=== PATIENT | female | born 1955 | race Caucasian/White ===

== ENCOUNTER 2016-09-15 11:52 | Emergency (ER) | payer OTHER ==
[~2016-09-15] VITALS: Ht 167.6 cm; Wt 102.0 kg
[~2016-09-15 11:52] MED LIST: ASPI325T10 PO; B12-1CHW SL; BUTACAP2 PO; CALC600T10 PO; CHOL50006 PO; CLON0.2T PO; DIPH25; ESTR42.5V PV; HYDR-3534 PO; NORV10TA PO; OMPR20CCR PO; POTA-243 PO; RANI1TAB7; TAB-TAB PO; TRAM50TA PO
[2016-09-15 11:56] VITALS: BP 139/60; PULSE 86; RESP 17; TEMP 98; O2SAT 97
[2016-09-15] MEDS ORDERED: SODIUM CHLORIDE 0.9% FLUSH 10 ML FLUSH IV FLUSH PRN (12:45)
--- NOTE | 2016-09-15 12:47 | PD ---
HPI Chief Complaint: Abdominal Pain Time Seen by Provider: 12:19 Travel History International Travel<30 days: No Contact w/Intl Traveler<30days: No Traveled to known affect area: No History of Present Illness HPI The patient was seen and examined in the presence of the nurse. She complains of abdominal pain. Location is epigastric and left upper quadrant. Severity is moderate. It seems to have eased off quite a bit. She did have nausea and vomited one time. She is also had some diarrhea. No alleviating factors. Duration 3 days. PFSH Past Medical History Blood Disorders: No Anxiety: Yes Depression: Yes Cancer: No Cardiovascular Problems: Yes (HTN) High Cholesterol: Yes Chest Pain: Yes Congestive Heart Failure: Yes Diabetes: Yes Patient Takes Glucophage: No Diminished Hearing: No Endocrine: Yes Fibromyalgia: Yes Gastrointestinal Disorders: Yes (MASS IN RIGHT SIDE GOING FOR CT THIS MONTH) GERD: Yes Genitourinary: Yes (FIBROIDS) Headaches: Yes Hepatitis: No Hiatal Hernia: Yes Hypertension: Yes Immune Disorder: No Inguinal Hernia: Yes Medical other: Yes (ABD HERNIAS) Musculoskeletal: No Neurologic: No Psychiatric: Yes Reproductive: No Respiratory: No Immunizations Current: No Thyroid Disease: No Tetanus Vaccination: > 5 Years Influenza Vaccination: No ?: Not Menopausal: Yes Tubal Ligation: Yes Past Surgical History Abdominal Surgery: Yes (GASTRIC BIPASS in 2008, CHOLECYSTECTOMY, HERNIA REPAIR , TUM) AICD: No Arteriovenous Shunt: No Body Medical Devices: ABD MESH Cardiac Surgery: No Section: Yes (x 1) Cholecystectomy: Yes (in 1993) Ear Surgery: No Endocrine Surgery: No Eye Surgery: No Gynecologic Surgery: Yes (C SECTION, TUBAL LIGATION) Insulin Pump: No Joint Replacement: No Pacemaker: No Thoracic Surgery: No Other Surgery: Yes (HERNIA REPAIR X 3, TUMMY TUCK 2009) Social History Alcohol Use: No Tobacco Use: No Substance Use: No Allergies-Medications (Allergen,Severity, Reaction): Coded Allergies: Fentanyl (Verified Allergy, Severe, Anaphylaxis, 09/15/16) Codeine (Verified Allergy, Mild, Nausea/Vomiting, 09/15/16) DENIES ALLERGY, "I ONLY GET NAUSEATED, I CAN TAKE A FEW DOSES." Glucophage (Verified Allergy, Mild, SHORT OF BREATH, 09/15/16) Reported Meds & Prescriptions Reported Meds & Active Scripts Active Reported Vitamin D3 (Cholecalciferol) 50,000 Unit Tab 50,000 Units PO Q7D Prilosec (Omeprazole) 20 Mg Cap 20 Mg PO DAILY Hydrochlorothiazide 25 Mg Tab 25 Mg PO DAILY Metoprolol Tartrate 25 Mg Tab 25 Mg PO DAILY Tramadol (Tramadol HCl) 50 Mg Tab 50 Mg PO Q6H PRN Zantac (Ranitidine HCl) 150 Mg Tab 150 Mg PO DAILY Multiple Vitamin 1 Tab 1 Tab PO DAILY Clonidine (Clonidine HCl) 0.2 Mg Tab 0.2 Mg PO TID Benadryl Allergy (Diphenhydramine HCl) 25 Mg Tab 25 Mg PO DAILY Vitamin B-12 (Cyanocobalamin) 1,000 Mcg Tab 1,000 Mcg PO DAILY Aspirin 325 Mg Tab 325 Mg PO DAILY Calcium 600 with Vitamin D (Calcium Carbonate-Cholecalciferol) 600-400 mg-Unit Tab 1 Tab PO DAILY Fiorinal (Butalbital/Aspirin/Caffeine) 50-325-40 Mg Cap 1 Cap PO Q6HR PRN Do not exceed 6 capsules/day. Review of Systems General / Constitutional: No: Fever Eyes: No: Visual changes HENT: No: Headaches Cardiovascular: No: Chest Pain or Discomfort Respiratory: No: Shortness of Breath Gastrointestinal: Positive: Nausea, Vomiting, Diarrhea, Abdominal Pain Genitourinary: No: Dysuria Musculoskeletal: No: Pain Skin: No Rash Neurologic: No: Weakness Psychiatric: No: Depression Endocrine: No: Polydipsia Hematologic/Lymphatic: No: Easy Bruising Physical Exam Narrative GENERAL: Well-nourished, well-developed patient in no apparent distress. SKIN: Focused skin assessment reveals no rash and nodules. Skin is Warm and dry. HEAD: Atraumatic. Normocephalic. EYES: Pupils equal and round. No scleral icterus. No injection or drainage. ENT: No nasal bleeding or discharge. Mucous membranes pink and moist. NECK: Trachea midline. No JVD. CARDIOVASCULAR: Regular rate and rhythm. No murmur appreciated. RESPIRATORY: No accessory muscle use. Clear to auscultation. Breath sounds equal bilaterally. GASTROINTESTINAL: Abdomen soft, obese, minimal epigastric and left upper quadrant tenderness without rebound or guarding, nondistended. Hepatic and splenic margins not palpable. MUSCULOSKELETAL: No obvious deformities. No clubbing. No cyanosis. No edema. NEUROLOGICAL: Awake and alert. No obvious cranial nerve deficits. Motor grossly within normal limits. Normal speech. PSYCHIATRIC: Appropriate mood and affect; insight and judgment normal. Data Data Last Documented VS Vital Signs Date Time Temp Pulse Resp B/P Pulse Ox O2 Delivery O2 Flow Rate FiO2 09/15/16 15:00 88 15 123/68 97 09/15/16 14:00 Room Air 09/15/16 11:56 98.0 Orders Complete Blood Count With Diff (09/15/16 12:36) Comprehensive Metabolic Panel (09/15/16 12:36) Lipase (09/15/16 12:36) Prothrombin Time / Inr (Pt) (09/15/16 12:36) Act Partial Throm Time (Ptt) (09/15/16 12:36) Ct Abd/Pel W Iv Contrast(Rout) (09/15/16 12:36) Iv Access Insert/Monitor (09/15/16 12:36) Ecg Monitoring (09/15/16 12:36) Oximetry (09/15/16 12:36) Sodium Chloride 0.9% Flush (Ns Flush) (09/15/16 12:45) Gamma Gt (Ggt) (09/15/16 12:36) Iohexol 350 Inj (Omnipaque 350 Inj) (09/15/16 14:17) Sodium Chlor 0.9% 1000 Ml Inj (Ns 1000 M (09/15/16 15:15) Oxycodone-Acetamin 5-325 Mg (Percocet (09/15/16 15:15) Labs Laboratory Tests Test 09/15/16 12:15 White Blood Count 13.2 TH/MM3 Red Blood Count 4.48 MIL/MM3 Hemoglobin 13.0 GM/DL Hematocrit 40.0 % Mean Corpuscular Volume 89.3 FL Mean Corpuscular Hemoglobin 28.9 PG Mean Corpuscular Hemoglobin 32.4 % Concent Red Cell Distribution Width 13.8 % Platelet Count 287 TH/MM3 Mean Platelet Volume 9.8 FL Neutrophils (%) (Auto) 75.4 % Lymphocytes (%) (Auto) 17.2 % Monocytes (%) (Auto) 6.7 % Eosinophils (%) (Auto) 0.1 % Basophils (%) (Auto) 0.6 % Neutrophils # (Auto) 10.0 TH/MM3 Lymphocytes # (Auto) 2.3 TH/MM3 Monocytes # (Auto) 0.9 TH/MM3 Eosinophils # (Auto) 0.0 TH/MM3 Basophils # (Auto) 0.1 TH/MM3 CBC Comment DIFF FINAL Differential Comment Prothrombin Time 11.1 SEC Prothromb Time International 1.0 RATIO Ratio Activated Partial 27.2 SEC Thromboplast Time Sodium Level 136 MEQ/L Potassium Level 3.4 MEQ/L Chloride Level 100 MEQ/L Carbon Dioxide Level 24.8 MEQ/L Anion Gap 11 MEQ/L Blood Urea Nitrogen 19 MG/DL Creatinine 1.16 MG/DL Estimat Glomerular Filtration 47 ML/MIN Rate Random Glucose 229 MG/DL Calcium Level 8.4 MG/DL Total Bilirubin 0.4 MG/DL Gamma Glutamyl Transpeptidase 59 U/L Aspartate Amino Transf 20 U/L (AST/SGOT) Alanine Aminotransferase 22 U/L (ALT/SGPT) Alkaline Phosphatase 108 U/L Total Protein 7.5 GM/DL Albumin 3.2 GM/DL Lipase 71 U/L [facility] Medical Decision Making Medical Screen Exam Complete: Yes Emergency Medical Condition: Yes Medical Record Reviewed: Yes Differential Diagnosis Pancreatitis, irritable bowel syndrome, biliary stricture Narrative Course I have reviewed the patient's electronic medical record. Patient 2014 had multiple visits for biliary stricture and required stent placement IV placed CBC shows leukocytosis of 13,000, nonspecific Metabolic profile reasonably normal LFTs reasonably normal Lipase is normal GGT is 59 I gave her 1 L normal saline IV CT abdomen and pelvis shows nothing acute Workup is essentially negative for acute obstructive problem Stable for outpatient follow-up with GI physician and primary care I wrote her a dozen pain pills and a dozen nausea pills for symptom relief Diagnosis Primary Impression: Abdominal pain Qualified Code: R10.13 - Epigastric pain Additional Instructions: The patient was advised to follow up with their physician and return if they worsen. The patient was warned about potential sedation for the medications they will receive on prescription. Med/Other Pt SpecificInfo: Prescription(s) given Scripts Ondansetron (Zofran)4 Mg Tab4 Mg PO Q6HR PRN (NAUSEA OR VOMITING) #12 TAB Ref 0 Prov:Omari Maddox MD 09/15/16 Oxycodone-Acetaminophen (Percocet)5-325 mg Tab1 Tab PO Q6H PRN (PAIN) #12 TAB Ref 0 Prov:Omari Maddox MD 09/15/16 Disposition: 01 DISCHARGE HOME Condition: Stable Omari Maddox MD Sep 15, 2016 12:47
[2016-09-15] MEDS ORDERED: CALC1TAB87 PO (12:49)
[2016-09-15] MEDS ORDERED: CHOL1TAB16 PO (12:49)
[2016-09-15] MEDS ORDERED: VITA10002 PO (12:49)
[2016-09-15] MEDS ORDERED: METO25TA3 PO (12:49)
[2016-09-15] MEDS ORDERED: MULTTAB67 PO (12:49)
[2016-09-15] MEDS ORDERED: BENA25TA3 PO (12:49)
[2016-09-15] MEDS ORDERED: ASPI325T PO (12:49)
[2016-09-15] MEDS ORDERED: TRAM50TA PO (12:49)
[2016-09-15] MEDS ORDERED: HYDR25TA5 PO (12:49)
[2016-09-15] MEDS ORDERED: FIORINAL2 PO (12:49)
[2016-09-15] MEDS ORDERED: ZANT150T2 PO (12:49)
[2016-09-15] MEDS ORDERED: CLON0.2T PO (12:49)
[2016-09-15] MEDS ORDERED: PRIL20CA9 PO (12:49)
[2016-09-15 12:58] LABS: BASOPHIL # 0.1 TH/MM3 (0-0.2); BASOPHIL % 0.6 % (0.0-2.0); EOSINOPHIL % 0.1 % (0.0-4.0); HEMO FLAGS DIFF FINAL; LYMPH % 17.2 % (9.0-44.0); LYMPHOCYTE # 2.3 TH/MM3 (1.0-4.8); MEAN CELL VOLUME 89.3 FL (80.0-100.0); MEAN CORPUSCULAR HEMOGLOBIN 28.9 PG (27.0-34.0); MEAN CORPUSCULAR HGB CONC 32.4 % (32.0-36.0); MONO % 6.7 % (0.0-8.0); NEUT % 75.4 % (16.0-70.0); PLATELET COUNT 287 TH/MM3 (150-450); RED BLOOD COUNT 4.48 MIL/MM3 (4.00-5.30); RED CELL DISTRIBUTION WIDTH 13.8 % (11.6-17.2); WHITE BLOOD COUNT 13.2 TH/MM3 (4.0-11.0)
[2016-09-15 13:00] VITALS: PULSE 85; RESP 16; O2SAT 98
[2016-09-15 13:06] LABS: APTT (PATIENT) 27.2 SEC (24.3-30.1); PROTHROMBIN TIME - PATIENT 11.1 SEC (9.8-11.6)
[2016-09-15 13:35] LABS: ALT (GPT) 22 U/L (10-53); ANION GAP 11 MEQ/L (5-15); AST (GOT) 20 U/L (15-37); BICARBONATE 24.8 MEQ/L (21.0-32.0); BLOOD UREA NITROGEN 19 MG/DL (7-18); CHLORIDE 100 MEQ/L (98-107); GAMMA GT 59 U/L (5-55); GLOMERULAR FILTRATION RATE 47 ML/MIN (>89); POTASSIUM 3.4 MEQ/L (3.5-5.1); SODIUM (NA) 136 MEQ/L (136-145)
[2016-09-15 13:37] LABS: ALKALINE PHOSPHATASE 108 U/L (45-117); TOTAL BILIRUBIN ADULT 0.4 MG/DL (0.2-1.0)
[2016-09-15 14:00] VITALS: PULSE 85; RESP 16; O2SAT 98
[2016-09-15] MEDS ORDERED: IOHEXOL 350 MG/ML 10 ML VIAL (for RAD DIAG) IV ONE (14:17)
--- NOTE | 2016-09-15 14:31 | RADRPT ---
EXAM DATE/TIME: 09/15/2016 13:56 [facility] COMPARISON: CT ABDOMEN W/O CONTRAST, July 27, 2013, 14:22. INDICATIONS : Left upper abdomen pain today. IV CONTRAST: 90 cc Omnipaque 350 (iohexol) IV ORAL CONTRAST: No oral contrast ingested. RADIATION DOSE: 16.27 CTDIvol (mGy) MEDICAL HISTORY : Congestive heart failure. Hernia, hiatal. SURGICAL HISTORY : Gastric bypass. hernia repair ENCOUNTER: Initial ACUITY: 1 day PAIN SCALE: 5/10 LOCATION: Left upper quadrant TECHNIQUE: Volumetric scanning of the abdomen and pelvis was performed. Using automated exposure control and ad justment of the mA and/or kV according to patient size, radiation dose was kept as low as reasonably achievable to obtain optimal diagnostic quality images. FINDINGS: CT Abdomen: The spleen, pancreas, kidneys, adrenals are unremarkable. There is no evidence for any ap preciable pathological adenopathy, free fluid, or bowel obstruction. The liver is fatty without focal lesions or technique. There is evidence for prior cholecystectomy and common bile that measures 7-[address] pelvis: There is no evidence for mass, abscess formation, or any significant adenopathy within the pelvis. There are scattered diverticuli mainly in the sigmoid colon without definite signs of divert iculitis. The appendix appears intact without definite signs of appendicitis. CONCLUSION: Fatty liver and the scattered colonic diverticuli KGil Kirkpatrick MD on September 15, 2016 at 14:25 Board Certified Radiologist. This report was verified electronically.
[2016-09-15 15:00] VITALS: BP 123/68; PULSE 88; RESP 15; O2SAT 97
[2016-09-15] MEDS ORDERED: PERC5TAB12 PO (15:14)
[2016-09-15] MEDS ORDERED: ZOFR4TAB PO (15:14)
[2016-09-15] MEDS ORDERED: oxyCODONE/ACETAMINOPHEN 5 MG/325 MG TAB PO ONE (15:15)
[2016-09-15] MEDS ORDERED: SODIUM CHLOR 0.9% 1000 ML INJ 1,000 ML IV ONE (15:15)
== END 2016-09-15 16:40 | disposition home or self-care (01) ==
LOC: NEPC 11:52
DX: R10.13 Epigastric pain (principal); R19.7 Diarrhea, unspecified; R11.2 Nausea with vomiting, unspecified; I10 Essential (primary) hypertension; E78.00 Pure hypercholesterolemia, unspecified; I50.9 Heart failure, unspecified; E11.9 Type 2 diabetes mellitus without complications; M79.7 Fibromyalgia; K21.9 Gastro-esophageal reflux disease without esophagitis
CPT/HCPCS: 74177; 80053; 82977; 83690; 85025; 85610; 85730; 96360; 99284; J7030; Q9967

== ENCOUNTER 2017-01-09 21:33 | Observation (INO) | payer OTHER ==
[~2017-01-09 21:33] MED LIST changes: +ASPI325T PO; -ASPI325T10 PO; -B12-1CHW SL; +BENA25TA3 PO; -BUTACAP2 PO; +CALC1TAB87 PO; -CALC600T10 PO; +CHOL1TAB16 PO; -CHOL50006 PO; -DIPH25; -ESTR42.5V PV; +FIORINAL2 PO; -HYDR-3534 PO; +HYDR25TA5 PO; +METO25TA3 PO; +MULTTAB67 PO; -NORV10TA PO; -OMPR20CCR PO; +PERC5TAB12 PO; -POTA-243 PO; +PRIL20CA9 PO; -RANI1TAB7; -TAB-TAB PO; +VITA10002 PO; +ZANT150T2 PO; +ZOFR4TAB PO
[2017-01-09 21:37] VITALS: BP 186/81; PULSE 89; RESP 16; TEMP 99.4; O2SAT 99
[2017-01-09 22:05] VITALS: BP 192/99; PULSE 92; RESP 18; TEMP 99.4; O2SAT 99
[2017-01-09 22:07] VITALS: O2SAT 98
--- NOTE | 2017-01-09 22:08 | PD ---
HPI Chief Complaint: Fever Time Seen by Provider: 21:50 Travel History International Travel<30 days: No Contact w/Intl Traveler<30days: No Traveled to known affect area: No History of Present Illness HPI 61-year-old female here for evaluation of fever, chills, palpitations, left arm pain, generalized malaise, headache. Patient reports that the symptoms started earlier today. She took Tylenol and tramadol at home without relief of symptoms. She reports that she break only has headaches, however her headache today is not improving with tramadol. She reports temperature of 99.9F at home. She denies cough. No abdominal pain. No urinary symptoms. No rash. No known history of CAD. No history of DVT or PE. No hemoptysis. PFSH Past Medical History Blood Disorders: No Anxiety: Yes Depression: Yes Cancer: No Cardiovascular Problems: Yes High Cholesterol: Yes Chest Pain: Yes Congestive Heart Failure: Yes Diabetes: Yes Patient Takes Glucophage: No Diminished Hearing: No Endocrine: Yes Fibromyalgia: Yes Gastrointestinal Disorders: Yes (MASS IN RIGHT SIDE.DIVERTICULOSIS,OBSTRUCTIVE JAUNDICE) GERD: Yes Genitourinary: Yes (FIBROIDS) Headaches: Yes Hepatitis: No Hiatal Hernia: Yes Hypertension: Yes Immune Disorder: No Inguinal Hernia: Yes Medical other: Yes (ABD HERNIAS) Musculoskeletal: No Neurologic: No Psychiatric: Yes Reproductive: No Respiratory: No Immunizations Current: No Thyroid Disease: No Menopausal: Yes Tubal Ligation: Yes Past Surgical History Abdominal Surgery: Yes (GASTRIC BIPASS in 2008, HERNIA REPAIR, ) AICD: No Arteriovenous Shunt: No Body Medical Devices: ABD MESH Cardiac Surgery: No Section: Yes (x 1) Cholecystectomy: Yes (in 1993) Ear Surgery: No Endocrine Surgery: No Eye Surgery: No Gynecologic Surgery: Yes (C SECTION, TUBAL LIGATION) Insulin Pump: No Joint Replacement: No Pacemaker: No Thoracic Surgery: No Other Surgery: Yes (HERNIA REPAIR X 3, 2009) Social History Alcohol Use: No Tobacco Use: No Substance Use: No Allergies-Medications (Allergen,Severity, Reaction): Coded Allergies: Fentanyl (Verified Allergy, Severe, Anaphylaxis, 01/09/17) Codeine (Verified Allergy, Mild, Nausea/Vomiting, 01/09/17) DENIES ALLERGY, "I ONLY GET NAUSEATED, I CAN TAKE A FEW DOSES." Glucophage (Verified Allergy, Mild, SHORT OF BREATH, 01/09/17) Reported Meds & Prescriptions Reported Meds & Active Scripts Active Reported Flexeril (Cyclobenzaprine HCl) 10 Mg Tab 10 Mg PO Omeprazole 20 Mg Tab 20 Mg PO DAILY Vitamin D3 (Cholecalciferol) 50,000 Unit Cap 50,000 Units PO Q7D Hydrochlorothiazide 25 Mg Tab 25 Mg PO DAILY Metoprolol Tartrate 25 Mg Tab 50 Mg PO BID Tramadol (Tramadol HCl) 50 Mg Tab 50 Mg PO Q6H PRN Zantac (Ranitidine HCl) 150 Mg Tab 150 Mg PO DAILY Multiple Vitamin 1 Tab 1 Tab PO DAILY Clonidine (Clonidine HCl) 0.2 Mg Tab 0.2 Mg PO TID Vitamin B-12 (Cyanocobalamin) 1,000 Mcg Tab 1,000 Mcg PO DAILY Aspirin 325 Mg Tab 325 Mg PO DAILY Fiorinal (Butalbital/Aspirin/Caffeine) 50-325-40 Mg Cap 1 Cap PO Q6HR PRN Do not exceed 6 capsules/day. Review of Systems Except as stated in HPI: all other systems reviewed are Neg Physical Exam Narrative GENERAL: Well-developed, well-nourished, overweight, appears anxious, no apparent distress. SKIN: Focused skin assessment warm/dry. No rash. HEAD: Atraumatic. Normocephalic. EYES: Pupils equal and round. No scleral icterus. No injection or drainage. ENT: Mucous membranes pink and dry. NECK: Trachea midline. No JVD. No nuchal rigidity. CARDIOVASCULAR: Regular rate and rhythm. RESPIRATORY: No accessory muscle use. Clear to auscultation. Breath sounds equal bilaterally. GASTROINTESTINAL: Abdomen soft, non-tender, nondistended. MUSCULOSKELETAL: No obvious deformities. No clubbing. No cyanosis. No edema. NEUROLOGICAL: Awake and alert. No obvious cranial nerve deficits. Motor grossly within normal limits. Normal speech. PSYCHIATRIC: Appropriate mood and affect; insight and judgment normal. Data Data Last Documented VS Vital Signs Date Time Temp Pulse Resp B/P Pulse Ox O2 Delivery O2 Flow Rate FiO2 01/09/17 22:07 98 01/09/17 22:05 99.4 92 18 192/99 01/09/17 21:37 Room Air Orders Complete Blood Count With Diff (01/09/17 22:03) Comprehensive Metabolic Panel (01/09/17 22:03) Lipase (01/09/17 22:03) Prothrombin Time / Inr (Pt) (01/09/17 22:03) Act Partial Throm Time (Ptt) (01/09/17 22:03) Urinalysis - C+S If Indicated (01/09/17 22:03) Iv Access Insert/Monitor (01/09/17 22:03) Ecg Monitoring (01/09/17 22:03) Oximetry (01/09/17 22:03) Sodium Chloride 0.9% Flush (Ns Flush) (01/09/17 22:15) Ckmb (Isoenzyme) Profile (01/09/17 22:03) Troponin I (01/09/17 22:03) Chest, Single Ap (01/09/17 22:03) Metoclopramide Inj (Reglan Inj) (01/09/17 22:15) D-Dimer (01/09/17 22:03) Blood Culture (01/09/17 22:03) Aspirin Chew (Aspirin Chew) (01/09/17 23:00) Labs Laboratory Tests Test 01/09/17 22:10 White Blood Count 15.0 TH/MM3 Red Blood Count 4.35 MIL/MM3 Hemoglobin 12.5 GM/DL Hematocrit 39.0 % Mean Corpuscular Volume 89.7 FL Mean Corpuscular Hemoglobin 28.6 PG Mean Corpuscular Hemoglobin 31.9 % Concent Red Cell Distribution Width 13.0 % Platelet Count 287 TH/MM3 Mean Platelet Volume 8.5 FL Neutrophils (%) (Auto) 69.7 % Lymphocytes (%) (Auto) 21.2 % Monocytes (%) (Auto) 7.4 % Eosinophils (%) (Auto) 1.2 % Basophils (%) (Auto) 0.5 % Neutrophils # (Auto) 10.4 TH/MM3 Lymphocytes # (Auto) 3.2 TH/MM3 Monocytes # (Auto) 1.1 TH/MM3 Eosinophils # (Auto) 0.2 TH/MM3 Basophils # (Auto) 0.1 TH/MM3 CBC Comment DIFF FINAL Differential Comment Prothrombin Time 10.1 SEC Prothromb Time International 0.9 RATIO Ratio Activated Partial 23.8 SEC Thromboplast Time D-Dimer Quantitative (PE/DVT) 0.50 MG/L FEU Urine Color LIGHT-YELLOW Urine Turbidity CLEAR Urine pH 6.5 Urine Specific [place] 1.017 Urine Protein NEG mg/dL Urine Glucose (UA) 300 mg/dL Urine Ketones NEG mg/dL Urine Occult Blood NEG Urine Nitrite NEG Urine Bilirubin NEG Urine Urobilinogen LESS THAN 2.0 MG/DL Urine Leukocyte Esterase NEG Urine Squamous Epithelial <1 /hpf Cells Microscopic Urinalysis Comment CULT NOT INDICATED Sodium Level 139 MEQ/L Potassium Level 3.7 MEQ/L Chloride Level 103 MEQ/L Carbon Dioxide Level 28.7 MEQ/L Anion Gap 7 MEQ/L Blood Urea Nitrogen 19 MG/DL Creatinine 0.95 MG/DL Estimat Glomerular Filtration 59 ML/MIN Rate Random Glucose 211 MG/DL Calcium Level 8.6 MG/DL Total Bilirubin 0.2 MG/DL Aspartate Amino Transf 20 U/L (AST/SGOT) Alanine Aminotransferase 18 U/L (ALT/SGPT) Alkaline Phosphatase 123 U/L Total Creatine Kinase 49 U/L Troponin I LESS THAN 0.02 NG/ML Total Protein 7.7 GM/DL Albumin 3.1 GM/DL Lipase 839 U/L [facility] Medical Decision Making Medical Screen Exam Complete: Yes Emergency Medical Condition: Yes Medical Record Reviewed: Yes Interpretation(s) EKG: Sinus, rate 91, normal axis, normal intervals, no acute ischemic abnormality. Differential Diagnosis Fever, viral illness, pneumonia, pneumothorax, PE, pericarditis, ACS, meningitis /encephalitis unlikely Narrative Course Initial vital signs show heart rate 89, blood pressure 186/81, pulse ox 99% on room air, oral temp of 99.4F. CBC shows WBC 15, hemoglobin 12.5, hematocrit 39, platelets 287. CMP is remarkable for random glucose 211, otherwise unremarkable. Lipase is 839. Cardiac enzymes are negative. UA is not suggestive of UTI. D-dimer is negative at 0.50. Chest x-ray: Minimal basal atelectasis. The patient was given aspirin, Reglan, and a liter of normal saline IV. She continues to have posterior head pain. Patient reports frequent headaches. This is not the worst headache of her life. There is no nuchal rigidity. I do not believe she has meningitis or encephalitis. I discussed this with the patient, and she tells me that she does not want to have an LP anyway. There are no peritoneal signs or tenderness on her abdominal exam. I do not believe that there is an acute intra-abdominal process causing her fever and symptoms. She is also continuing to have left-sided shoulder and chest pain/discomfort. She is likely suffering from a viral illness, however given symptoms of chest pain as well as elevated lipase, the patient will be admitted for observation for further treatment. Diagnosis Primary Impression: Febrile illness Additional Impressions: Chest pain Qualified Code: R07.9 - Chest pain, unspecified type Headache Qualified Code: R51 - Nonintractable headache, unspecified chronicity pattern , unspecified headache type Pancreatitis Qualified Code: K85.90 - Acute pancreatitis, unspecified complication status, unspecified pancreatitis type Admitting Information Admitting Physician Requests: Denny Doyle MD Jan 09, 2017 22:08
[2017-01-09] MEDS ORDERED: SODIUM CHLORIDE 0.9% FLUSH 10 ML FLUSH IV FLUSH PRN ×2 (22:15→23:30)
[2017-01-09] MEDS ORDERED: METOCLOPRAMIDE HCL 10 MG/2 ML VIAL IV PUSH ONE (22:15)
[2017-01-09 22:23] LABS: BLOOD, URINE NEG (NEG); GLUCOSE,URINE 300 mg/dL (NEG); KETONE, URINE NEG (NEG); NITRITE,URINE NEG (NEG); PH, URINE 6.5 (5.0-8.5); SQUAMOUS EPITHELIAL CELL URINE <1 /hpf (0-5); URINE COLOR LIGHT-YELLOW (YELLW/STRAW)
[2017-01-09 22:24] LABS: AUTOMATED NEUTROPHIL # 10.4 TH/MM3 (1.8-7.7); BASOPHIL # 0.1 TH/MM3 (0-0.2); BASOPHIL % 0.5 % (0.0-2.0); EOSINOPHIL # 0.2 TH/MM3 (0-0.4); EOSINOPHIL % 1.2 % (0.0-4.0); HEMO FLAGS DIFF FINAL; LYMPH % 21.2 % (9.0-44.0); LYMPHOCYTE # 3.2 TH/MM3 (1.0-4.8); MEAN CELL VOLUME 89.7 FL (80.0-100.0); MEAN CORPUSCULAR HEMOGLOBIN 28.6 PG (27.0-34.0); MEAN CORPUSCULAR HGB CONC 31.9 % (32.0-36.0); MONO % 7.4 % (0.0-8.0); NEUT % 69.7 % (16.0-70.0); PLATELET COUNT 287 TH/MM3 (150-450); RED BLOOD COUNT 4.35 MIL/MM3 (4.00-5.30)
[2017-01-09] MEDS ORDERED: CHOL1CAP34 PO (22:24)
[2017-01-09] MEDS ORDERED: OMEP20TA PO (22:24)
[2017-01-09] MEDS ORDERED: CYCL1TAB29 PO (22:24)
[2017-01-09 22:30] LABS: COMMENT (UR) CULT NOT INDICATED; CULTURE IF INDICATED CULT NOT INDICATED
[2017-01-09 22:41] LABS: ALT (GPT) 18 U/L (10-53); ANION GAP 7 MEQ/L (5-15); AST (GOT) 20 U/L (15-37); BICARBONATE 28.7 MEQ/L (21.0-32.0); BLOOD UREA NITROGEN 19 MG/DL (7-18); CHLORIDE 103 MEQ/L (98-107); GLOMERULAR FILTRATION RATE 59 ML/MIN (>89); POTASSIUM 3.7 MEQ/L (3.5-5.1); SODIUM (NA) 139 MEQ/L (136-145)
[2017-01-09 22:42] LABS: APTT (PATIENT) 23.8 SEC (24.3-30.1); INTERNATIONAL NORMALIZED RATIO 0.9 RATIO; PROTHROMBIN TIME - PATIENT 10.1 SEC (9.8-11.6)
[2017-01-09 22:45] LABS: ALKALINE PHOSPHATASE 123 U/L (45-117); TOTAL BILIRUBIN ADULT 0.2 MG/DL (0.2-1.0)
--- NOTE | 2017-01-09 22:46 | RADRPT ---
EXAM DATE/TIME: 01/09/2017 22:21 [facility] COMPARISON: CHEST SINGLE AP, June 15, 2013, 21:16. INDICATIONS : Fever, chest pain starting today MEDICAL HISTORY : Congestive heart failure. Hernia, hiatal SURGICAL HISTORY : Gastric bypass. hernia repair ENCOUNTER: Initial ACUITY: 1 day PAIN SCORE: 10/10 LOCATION: Bilateral chest FINDINGS: There is minimal basal atelectasis. No effusion. No pneumothorax. Mild scoliosis. CONCLUSION: 1. Minimal basal atelectasis. Cliff Larose MD on January 09, 2017 at 22:42 Board Certified Radiologist. This report was verified electronically.
[2017-01-09 22:51] LABS: CREATINE KINASE 49 U/L (26-192)
[2017-01-09] MEDS ORDERED: MORPHINE SULFATE 4 MG/ML INJ IM ONE (23:00)
[2017-01-09] MEDS ORDERED: ASPIRIN 81 MG CHEW TAB PO ONE (23:00)
[2017-01-09] MEDS ORDERED: MORPHINE SULFATE 8 MG/ML INJ IV PUSH ONE (23:15)
[2017-01-09] MEDS ORDERED: NALOXONE HCL 0.4 MG/ML AMP IV PRN (23:30)
[2017-01-09] MEDS ORDERED: MORPHINE SULFATE 4 MG/ML INJ IV PUSH ONE (23:30)
[2017-01-09 23:42] VITALS: BP 176/75; PULSE 95; RESP 18; O2SAT 96
--- NOTE | 2017-01-09 23:50 | HHI.HP ---
[facility] Francisco Ellison MD Admission Diagnosis fever, chest pain, headache, pancreatitis Diagnoses: (1) Pancreatitis (2) Headache (3) Chest pain (4) Febrile illness Chief Complaint: Fever, chest pain, headache, neck pain Travel History International Travel<30 Days: No Contact w/Intl Traveler <30 Da: No Traveled to Known Affected Are: No History of Present Illness Written by Rossi Leija, acting as scribe for Dr. Mead on 01/09/17 at 23:49. Patient seen in ED Reports a history of fibromyalgia Fevers and central chest pain "feels like a knot inside"; worsened with swallowing and breathing; with left neck and upper arm muscle spasm. Left neck pain with "horrible" headaches. States she felt like her "heart was racing". These types of symptoms have occurred three times and were accompanied by fever (usually at night and lasts only for two nights) Last time was about a month ago Was on Levaquin a couple of months ago per PCP Denies recent fall; has felt weak First episode had a fever up to 103 "point something", had nausea and diarrhea for a few days - reports chronic diarrhea s/p gastric bypass - patient stopped her Metoprolol around this time. Second episode without diarrhea Denies cough, nausea, or vomiting. Reports dark urine yesterday and today. Denies red stool; had black stool after Kaopectate use. Denies dysuria; denies chest pains. Denies skin lesions. No recent long distance travel or long car rides She was seeing Dr. Milian, banking center manager, but states she was released from that practice for refusal to take a beta usman/metoprolol - she has a history of PACs stopped taking Metoprolol about 3 months ago. . Review of Systems Except as stated in HPI: all other systems reviewed are Neg Past Family Social History Past Medical History Hypertension Type 2 diabetes mellitus Hypoglycemia with full tablet of home glyburide - states she takes a small amount of a pill as needed PACs Might have atrial fibrillation CAD CHF CBD ductal dilation with pancreatic stent ANTONI prior to gastric bypass Fatty liver Anxiety Denies COPD, emphysema, kidney problems, DVT, PE, CVA, seizures, thyroid problems, or cancers Past Surgical History Gastric bypass 2008 C Section Cholecystectomy Hernia repair Pedunculotomy wrist repair . Reported Medications Vistaril PRN anxiety Carafate Reported Meds & Active Scripts Active Reported Flexeril (Cyclobenzaprine HCl) 10 Mg Tab 10 Mg PO Omeprazole 20 Mg Tab 20 Mg PO DAILY Vitamin D3 (Cholecalciferol) 50,000 Unit Cap 50,000 Units PO Q7D Hydrochlorothiazide 25 Mg Tab 25 Mg PO DAILY Metoprolol Tartrate 25 Mg Tab 50 Mg PO BID Tramadol (Tramadol HCl) 50 Mg Tab 50 Mg PO Q6H PRN Zantac (Ranitidine HCl) 150 Mg Tab 150 Mg PO DAILY Multiple Vitamin 1 Tab 1 Tab PO DAILY Clonidine (Clonidine HCl) 0.2 Mg Tab 0.2 Mg PO TID Vitamin B-12 (Cyanocobalamin) 1,000 Mcg Tab 1,000 Mcg PO DAILY Aspirin 325 Mg Tab 325 Mg PO DAILY Fiorinal (Butalbital/Aspirin/Caffeine) 50-325-40 Mg Cap 1 Cap PO Q6HR PRN Do not exceed 6 capsules/day. . Allergies: Coded Allergies: Fentanyl (Verified Allergy, Severe, Anaphylaxis, 01/09/17) Codeine (Verified Allergy, Mild, Nausea/Vomiting, 01/09/17) DENIES ALLERGY, "I ONLY GET NAUSEATED, I CAN TAKE A FEW DOSES." Glucophage (Verified Allergy, Mild, SHORT OF BREATH, 01/09/17) Active Ordered Medications Current Medications Sodium Chloride (NS Flush) 2 ml UNSCH PRN IV FLUSH FLUSH AFTER USING IV ACCESS Last administered on 01/09/17 23:26; Start 01/09/17 at 22:15; Stop 01/09/17 at 23: 29; Status DC Metoclopramide HCl (Reglan Inj) 10 mg ONCE ONCE IV PUSH Last administered on 22:14; Start 01/09/17 at 22:15; Stop 01/09/17 at 22:16; Status DC Aspirin (Aspirin Chew) 324 mg ONCE ONCE PO Last administered on 01/09/17 22:57 ; Start 01/09/17 at 23:00; Stop 01/09/17 at 23:01; Status DC Morphine Sulfate (Morphine Inj) 4 mg ONCE ONCE IM ; Start 01/09/17 at 23:00; Stop 01/09/17 at 23:09; Status DC Morphine Sulfate (Morphine Inj) 8 mg ONCE ONCE IV PUSH ; Start 01/09/17 at 23:15 ; Stop 01/09/17 at 23:24; Status DC Sodium Chloride (NS Flush) 2 ml UNSCH PRN IV FLUSH FLUSH AFTER USING IV ACCESS ; Start 01/09/17 at 23:30 Sodium Chloride (NS Flush) 2 ml BID IV FLUSH ; Start 01/10/17 at 09:00 Naloxone HCl (Narcan Inj) 0.4 mg UNSCH PRN IV SEE LABEL COMMENTS; Start at 23:30 Morphine Sulfate (Morphine Inj) 2 mg Q3H PRN IV PUSH pain >5; Start 01/09/17 at 23:30 Morphine Sulfate (Morphine Inj) 4 mg ONCE ONCE IV PUSH Last administered on t 23:26; Start 01/09/17 at 23:30; Stop 01/09/17 at 23:31; Status DC . Family History Daughter with DVT - related Mother from sepsis, COPD Heart disease on mother's side of family - CAD/[place] . Social History Tobacco: denies Alcohol: very rare Illicit Drugs: denies . Physical Exam Vital Signs Vital Signs Date Time Temp Pulse Resp B/P Pulse Ox O2 Delivery O2 Flow Rate FiO2 01/09/17 23:42 95 18 176/75 96 Room Air 01/09/17 22:07 98 01/09/17 22:05 99.4 92 18 192/99 99 01/09/17 21:37 99.4 89 16 186/81 99 Room Air Physical Exam GENERAL: This is a morbidly obese female patient, was in somewhat of distress from dyspnea while she walked into her room from bathroom SKIN: No rashes, ecchymoses or lesions. Cool and dry. HEAD: Atraumatic. Normocephalic. EYES: No scleral icterus. No injection or drainage. ENT: Nose without bleeding, purulent drainage. NECK: Trachea midline. No JVD CARDIOVASCULAR: Regular rate and rhythm without murmurs, gallops, or rubs. RESPIRATORY: Clear to auscultation. Breath sounds equal bilaterally. No wheezes , rales, or rhonchi. GASTROINTESTINAL: Abdomen soft, non-tender, nondistended. No guarding. MUSCULOSKELETAL: Extremities without clubbing, cyanosis, or edema. No calf tenderness. NEUROLOGICAL: Awake and alert. Motor and sensory grossly within normal limits. Normal speech. . Laboratory Laboratory Tests Test 01/09/17 22:10 White Blood Count 15.0 Red Blood Count 4.35 Hemoglobin 12.5 Hematocrit 39.0 Mean Corpuscular Volume 89.7 Mean Corpuscular Hemoglobin 28.6 Mean Corpuscular Hemoglobin 31.9 Concent Red Cell Distribution Width 13.0 Platelet Count 287 Mean Platelet Volume 8.5 Neutrophils (%) (Auto) 69.7 Lymphocytes (%) (Auto) 21.2 Monocytes (%) (Auto) 7.4 Eosinophils (%) (Auto) 1.2 Basophils (%) (Auto) 0.5 Neutrophils # (Auto) 10.4 Lymphocytes # (Auto) 3.2 Monocytes # (Auto) 1.1 Eosinophils # (Auto) 0.2 Basophils # (Auto) 0.1 CBC Comment DIFF FINAL Differential Comment Prothrombin Time 10.1 Prothromb Time International 0.9 Ratio Activated Partial 23.8 Thromboplast Time D-Dimer Quantitative (PE/DVT) 0.50 Urine Color LIGHT-YELLOW Urine Turbidity CLEAR Urine pH 6.5 Urine Specific [place] 1.017 Urine Protein NEG Urine Glucose (UA) 300 Urine Ketones NEG Urine Occult Blood NEG Urine Nitrite NEG Urine Bilirubin NEG Urine Urobilinogen LESS THAN 2.0 Urine Leukocyte Esterase NEG Urine Squamous Epithelial <1 Cells Microscopic Urinalysis Comment CULT NOT INDICATED Sodium Level 139 Potassium Level 3.7 Chloride Level 103 Carbon Dioxide Level 28.7 Anion Gap 7 Blood Urea Nitrogen 19 Creatinine 0.95 Estimat Glomerular Filtration 59 Rate Random Glucose 211 Calcium Level 8.6 Total Bilirubin 0.2 Aspartate Amino Transf 20 (AST/SGOT) Alanine Aminotransferase 18 (ALT/SGPT) Alkaline Phosphatase 123 Total Creatine Kinase 49 Troponin I LESS THAN 0.02 Total Protein 7.7 Albumin 3.1 Lipase 839 Date/Time Procedure Status Source Growth 01/09/17 23:05 Influenza Types A,B Antigen (LEONIDAS) - Final Complete Nasal Washing NEGATIVE FOR FLU A AND B ANTIGEN.... 01/09/17 22:10 Aerobic Blood Culture Received Blood Peripheral Pending 01/09/17 22:10 Anaerobic Blood Culture Received Blood Peripheral Pending Result Diagram: [id number]/9/220901/09/172209 Imaging Last Impressions Chest X-Ray 01/09/172202 Signed Impressions: Service Date/Time: Monday, January 09, 2017 22:21 - CONCLUSION: 1. Minimal basal atelectasis. Cliff Larose MD Assessment and Plan Problem List: (1) Chest pain ICD Code: R07.9 Status: Acute (2) Headache ICD Code: R51 Status: Acute (3) Pancreatitis ICD Code: K85.90 Status: Acute (4) Febrile illness ICD Code: R50.9 Status: Acute Assessment and Plan Chest pain Palpitations History of PACs and possible atrial fibrillation - worse with swallowing and breathing- will consult gastroenterology to evaluate for possible GI etiologies ; d- dimer is negative - Check 2-D echocardiogram to evaluate cardiac structure and function - Continuous cardiac telemetry to monitor her heart rate for arrhythmias - pt used to follow up with Dr Mimi Milian, and stated she was no longer accepted there because she refused to take higher dose of metoprolol 100mg due to side effects. She had no problem with metoprolol 50mg po bid dose prior. Serial EKGs and cardiac enzymes to rule out ACS Headache Febrile illness - Leukocytosis with WBC 15.0 on admission - refused lumbar puncture in ED; however, her complaint is more of musculoskeletal neck pain. Pointed to left neck going all the way up to the head. Stated this is the same area when she have pains from fibromyalgia. Though this pain is worse than her normal pains. - Morphine 2 mg IV every 3 hours when necessary pain - Negative for flu a and B in ED - Blood cultures pending, await results Diarrhea and recent antibiotics - Check C. difficile toxin PCR Pancreatitis - Lipase 839 - GI consulted - await recommendations DVT prophylaxis - Lovenox 40 mg subq q24h This note was transcribed by paulo [Rossi Leija]. I, Dr. Andres Mead personally performed the history, physical exam, and medical decision making; and confirmed the accuracy of the information in the transcribed note. Authenticated by Dr. Andres Mead on 01/09/17 at 23:49. Discussed Condition With ER physician and patient . Problem Qualifiers (1) Pancreatitis: Qualified Code: K85.90 - Acute pancreatitis, unspecified complication status, unspecified pancreatitis type (2) Headache: Qualified Code: R51 - Nonintractable headache, unspecified chronicity pattern, unspecified headache type (3) Chest pain: Qualified Code: R07.9 - Chest pain, unspecified type Rossi Leija Jan 09, 2017 23:50 Andres Mead MD Jan 10, 2017 08:08
[2017-01-10] VITALS (11 sets, daily range): BP systolic 109–143; BP diastolic 53–71; PULSE 74–117; RESP 15–21; TEMP 97.8–100.1; O2SAT 95–100
[2017-01-10] MEDS: MORPHINE SULFATE 4 MG/ML INJ IV PUSH PRN ×4 (01:42→15:23)
[2017-01-10] MEDS: PANTOPRAZOLE SOD 20 MG DELAYED RELEASE TAB PO SCH ×2 (02:56→08:42)
[2017-01-10] MEDS: PANTOPRAZOLE SODIUM 40 MG VIAL IV PUSH SCH ×2 (02:57→15:22)
[2017-01-10 03:45] LABS: AUTOMATED NEUTROPHIL # 13.2 TH/MM3 (1.8-7.7); BASOPHIL # 0.1 TH/MM3 (0-0.2); BASOPHIL % 0.7 % (0.0-2.0); EOSINOPHIL # 0.1 TH/MM3 (0-0.4); EOSINOPHIL % 0.7 % (0.0-4.0); HEMATOCRIT 36.7 % (35.0-46.0); HEMO FLAGS DIFF FINAL; LYMPH % 18.7 % (9.0-44.0); LYMPHOCYTE # 3.5 TH/MM3 (1.0-4.8); MEAN CORPUSCULAR HEMOGLOBIN 28.9 PG (27.0-34.0); MEAN CORPUSCULAR HGB CONC 32.5 % (32.0-36.0); MONO % 8.7 % (0.0-8.0); NEUT % 71.2 % (16.0-70.0); PLATELET COUNT 277 TH/MM3 (150-450); RED BLOOD COUNT 4.13 MIL/MM3 (4.00-5.30); WHITE BLOOD COUNT 18.5 TH/MM3 (4.0-11.0)
[2017-01-10] MEDS ORDERED: LORazepam 2 MG/ML VIAL IV PUSH ONE (03:45)
[2017-01-10 04:11] LABS: ANION GAP 10 MEQ/L (5-15); BICARBONATE 29.4 MEQ/L (21.0-32.0); BLOOD UREA NITROGEN 16 MG/DL (7-18); CHLORIDE 100 MEQ/L (98-107); GLOMERULAR FILTRATION RATE 67 ML/MIN (>89); POTASSIUM 3.5 MEQ/L (3.5-5.1); SODIUM (NA) 139 MEQ/L (136-145)
[2017-01-10 04:29] LABS: CREATINE KINASE 38 U/L (26-192)
[2017-01-10] MEDS: SUCRALFATE 1 GM/10 ML CUP PO SCH ×4 (05:41→21:24)
[2017-01-10] MEDS ORDERED: SUCRALFATE 1 GM TAB PO SCH (07:00)
[2017-01-10] MEDS: ASPIRIN 325 MG TAB PO SCH (08:41)
[2017-01-10] MEDS: cloNIDine HCL 0.2 MG TAB PO SCH ×3 (08:41→17:56)
[2017-01-10] MEDS: METOPROLOL TARTRATE 25 MG TAB PO SCH ×2 (08:41→21:24)
[2017-01-10] MEDS: FAMOTIDINE 20 MG TAB PO SCH (08:41)
[2017-01-10] MEDS: SODIUM CHLORIDE 0.9% FLUSH 10 ML FLUSH IV FLUSH SCH ×2 (08:42→21:23)
[2017-01-10] MEDS ORDERED: ENOXAPARIN SODIUM 40 MG/0.4 ML SYRINGE SQ SCH (09:00)
--- NOTE | 2017-01-10 09:04 | PD.CONS ---
HPI History of Present Illness This is a 61 year old female with a history of gastric ulcer with elevated Ca19- 9 level. She was previously evaluated for biliary obstruction. She underwent transhepatic biliary drainage Transhepatic (06/20/13)----> Very difficult case due to the patient's body habitus. The patient also has mesh involving the anterior abdominal wall per her report from previous ventral hernia repair preventing left sided access. An internal/external biliary drainage catheter was placed via right sided approach. The biliary tree is dilated within the intrahepatic and extrahepatic aspects down to the level of the ampulla. She reports that she with had multiple stent exchanges by IR, but after 8 months did not require any more of these. Ca19-9 (12/17/13) 50.8, EUS (02/22/14)---> Gastrojejunal anastomosis ulcer, s/p biopsy, S/P chanda-en-Y gastric bypass surgery with limited endoscopic ultrasound examination. I was able to visualize the pancreatic neck, body, and tail, which were largely unremarkable. The pancreatic head and common bile duct could not be visualized. Portion of fundic mucosa with edema, reactive changes and mild chronic inflammation, portion of intestinal mucosa with marked reactive changes and chronic inflammation, negative for viral inclusions, granulomas, and for malignancy. EGD (04/20/14)---> Gastritis around anastomosis, biopsied, retroflexed views revealed no abnormalities. Pathology revealed chronic gastritis, mild. Her last colonoscopy was Colonoscopy (09/12/12)---> sessile polyp in the mid transverse colon, sessile polyp in the rectum, moderate diverticulosis in the sigmoid colon, small internal hemorrhoids, small external hemorrhoids. She was feeling okay up until yesterday, when she started having generalized weakness with chest pain. She states that this is a dull ache in her substernal area with deep breaths. She has associated spasms down bilateral sides and into her back. She has associated shortness of breaths. She has had this in the past ( 3x) and reports that it will go away after a few hours. She does not feel that it is related to food. Sometimes she has nausea with this, although she is not having any now. She does have chronic intermittent diarrhea- with episodes 3-4 times a week. When she has this, she will have multiple frequent liquid/loose stools. She takes Kaopectate or Imodium for this and reports that it does help. This does seem to be aggravated by sweets and ice cream. Her lipase is elevated at 839. She is s/p cholecystectomy in 1993. PFSH Past Medical History Hypertension Type 2 diabetes mellitus CAD CHF CBD ductal dilation with pancreatic stent Elevated Ca19-9 ANTONI prior to gastric bypass Fatty liver Anxiety Gastritis Fibromyalgia Hemorrhoids Past Surgical History Gastric bypass 2008 C Section Cholecystectomy EUS Hernia repair Pedunculotomy Wrist repair Coded Allergies: Fentanyl (Verified Allergy, Severe, Anaphylaxis, 01/09/17) Codeine (Verified Allergy, Mild, Nausea/Vomiting, 01/09/17) DENIES ALLERGY, "I ONLY GET NAUSEATED, I CAN TAKE A FEW DOSES." Glucophage (Verified Allergy, Mild, SHORT OF BREATH, 01/09/17) Medications Allergies Coded Allergies Type Severity Reaction Last Updated Verified Fentanyl Allergy Severe Anaphylaxis 01/09/17 Yes Codeine Allergy Mild Nausea/Vomiting 01/09/17 Yes Glucophage Allergy Mild SHORT OF BREATH 01/09/17 Yes Active Scripts Medications Dose Route/Sig Days Date Category Dose Instructions Flexeril (Cyclobenzaprine HCl) 10 Mg Tab 10 Mg PO 01/09/17 Reported Omeprazole 20 Mg Tab 20 Mg PO DAILY 01/09/17 Reported Vitamin D3 (Cholecalciferol) 50,000 Unit Cap 50,000 Units PO Q7D 01/09/17 Reported Hydrochlorothiazide 25 Mg Tab 25 Mg PO DAILY 09/15/16 Reported Metoprolol Tartrate 25 Mg Tab 50 Mg PO BID 09/15/16 Reported Tramadol (Tramadol HCl) 50 Mg Tab 50 Mg PO Q6H PRN 09/15/16 Reported Zantac (Ranitidine HCl) 150 Mg Tab 150 Mg PO DAILY 09/15/16 Reported Multiple Vitamin 1 Tab 1 Tab PO DAILY 09/15/16 Reported Clonidine (Clonidine HCl) 0.2 Mg Tab 0.2 Mg PO TID 09/15/16 Reported Vitamin B-12 (Cyanocobalamin) 1,000 Mcg Tab 1,000 Mcg PO DAILY 09/15/16 Reported Aspirin 325 Mg Tab 325 Mg PO DAILY 09/15/16 Reported Fiorinal (Butalbital/Aspirin/Caffeine) 50-325-40 Mg Cap 1 Cap PO Q6HR PRN 09/15/16 Reported Do not exceed 6 capsules/day. Family History Daughter with DVT - related Mother from sepsis, COPD Heart disease on mother's side of family - CAD/[place] Social History Tobacco: denies Alcohol: very rare Illicit Drugs: denies Review of Systems Constitutional: COMPLAINS OF: Fatigue, Chills, DENIES: Fever, Weight loss, Change in appetite Respiratory: COMPLAINS OF: Shortness of breath, DENIES: Cough Cardiovascular: COMPLAINS OF: Chest pain Gastrointestinal: COMPLAINS OF: Diarrhea, Nausea, Swelling of Abdomen, DENIES : Abdominal pain, Black stools, Bloody stools, Constipation, Vomiting, Difficulty Swallowing, Heartburn, Hematemesis Musculoskeletal: COMPLAINS OF: Joint pain, Back pain Integumentary: DENIES: Abnormal pigmentation, Jaundice Hematologic/lymphatic: DENIES: Bruising Immunologic/allergic: DENIES: Eczema Neurologic: DENIES: Headache Psychiatric: DENIES: Confusion GI Exam Vitals I&O Vital Signs Date Time Temp Pulse Resp B/P Pulse Ox O2 Delivery O2 Flow Rate FiO2 01/10/17 07:08 100.1 117 17 137/65 95 01/10/17 05:50 18 01/10/17 05:14 98.9 117 20 139/71 95 01/10/17 02:22 99.3 98 21 143/63 100 01/10/17 00:03 136/64 01/09/17 23:49 18 01/09/17 23:42 95 18 176/75 96 Room Air 01/09/17 22:07 98 01/09/17 22:05 99.4 92 18 192/99 99 01/09/17 21:37 99.4 89 16 186/81 99 Room Air Imaging Last Impressions Chest X-Ray 01/09/172202 Signed Impressions: Service Date/Time: Monday, January 09, 2017 22:21 - CONCLUSION: 1. Minimal basal atelectasis. Cliff Larose MD Laboratory Test 01/09/17 01/10/17 22:10 03:33 White Blood Count 15.0 TH/MM3 18.5 TH/MM3 Red Blood Count 4.35 MIL/MM3 4.13 MIL/MM3 Hemoglobin 12.5 GM/DL 11.9 GM/DL Hematocrit 39.0 % 36.7 % Mean Corpuscular Volume 89.7 FL 89.0 FL Mean Corpuscular Hemoglobin 28.6 PG 28.9 PG Mean Corpuscular Hemoglobin 31.9 % 32.5 % Concent Red Cell Distribution Width 13.0 % 13.0 % Platelet Count 287 TH/MM3 277 TH/MM3 Mean Platelet Volume 8.5 FL 8.1 FL Neutrophils (%) (Auto) 69.7 % 71.2 % Lymphocytes (%) (Auto) 21.2 % 18.7 % Monocytes (%) (Auto) 7.4 % 8.7 % Eosinophils (%) (Auto) 1.2 % 0.7 % Basophils (%) (Auto) 0.5 % 0.7 % Neutrophils # (Auto) 10.4 TH/MM3 13.2 TH/MM3 Lymphocytes # (Auto) 3.2 TH/MM3 3.5 TH/MM3 Monocytes # (Auto) 1.1 TH/MM3 1.6 TH/MM3 Eosinophils # (Auto) 0.2 TH/MM3 0.1 TH/MM3 Basophils # (Auto) 0.1 TH/MM3 0.1 TH/MM3 CBC Comment DIFF FINAL DIFF FINAL Differential Comment Prothrombin Time 10.1 SEC Prothromb Time International 0.9 RATIO Ratio Activated Partial 23.8 SEC Thromboplast Time D-Dimer Quantitative (PE/DVT) 0.50 MG/L FEU Urine Color LIGHT-YELLOW Urine Turbidity CLEAR Urine pH 6.5 Urine Specific [place] 1.017 Urine Protein NEG mg/dL Urine Glucose (UA) 300 mg/dL Urine Ketones NEG mg/dL Urine Occult Blood NEG Urine Nitrite NEG Urine Bilirubin NEG Urine Urobilinogen LESS THAN 2.0 MG/DL Urine Leukocyte Esterase NEG Urine Squamous Epithelial <1 /hpf Cells Microscopic Urinalysis Comment CULT NOT INDICATED Sodium Level 139 MEQ/L 139 MEQ/L Potassium Level 3.7 MEQ/L 3.5 MEQ/L Chloride Level 103 MEQ/L 100 MEQ/L Carbon Dioxide Level 28.7 MEQ/L 29.4 MEQ/L Anion Gap 7 MEQ/L 10 MEQ/L Blood Urea Nitrogen 19 MG/DL 16 MG/DL Creatinine 0.95 MG/DL 0.86 MG/DL Estimat Glomerular Filtration 59 ML/MIN 67 ML/MIN Rate Random Glucose 211 MG/DL 188 MG/DL Calcium Level 8.6 MG/DL 8.5 MG/DL Total Bilirubin 0.2 MG/DL Aspartate Amino Transf 20 U/L (AST/SGOT) Alanine Aminotransferase 18 U/L (ALT/SGPT) Alkaline Phosphatase 123 U/L Total Creatine Kinase 49 U/L 38 U/L Troponin I LESS THAN 0.02 LESS THAN 0.02 NG/ML NG/ML Total Protein 7.7 GM/DL Albumin 3.1 GM/DL Lipase 839 U/L B-Type Natriuretic Peptide 114 PG/ML Date/Time Procedure Status Source Growth 01/09/17 23:05 Influenza Types A,B Antigen (LEONIDAS) - Final Complete Nasal Washing NEGATIVE FOR FLU A AND B ANTIGEN.... 01/09/17 22:10 Aerobic Blood Culture Received Blood Peripheral Pending 01/09/17 22:10 Anaerobic Blood Culture Received Blood Peripheral Pending Physical Examination HEENT: Normocephalic; atraumatic; no jaundice. CHEST: CTA CARDIAC: RRR ABDOMEN: Soft, nondistended, nontender; no hepatosplenomegaly; bowel sounds are present in all four quadrants. EXTREMITIES: No clubbing, cyanosis, or edema. SKIN: Normal; no rash; no jaundice. GALLEY WORKER: No focal deficits; alert and oriented times three. Assessment and Plan Plan ASSESSMENT: - Atypical chest pain, nausea, abdominal pain, diarrhea with elevated Lipase. She has a history of biliary obstruction and elevated Ca19-9. She also has a hx of gastric bypass and cannot have ERCP and therefore underwent transhepatic biliary drainage (06/20/13)----> Very difficult case due to the patient's body habitus. The patient also has mesh involving the anterior abdominal wall per her report from previous ventral hernia repair preventing left sided access. An internal/external biliary drainage catheter was placed via right sided approach. The biliary tree is dilated within the intrahepatic and extrahepatic aspects down to the level of the ampulla. She reports that she with had multiple stent exchanges by IR, but after 8 months did not require any more of these. According to office records, Ca19-9 ( 12/17/13) 50.8, EUS (02/22/14)---> Gastrojejunal anastomosis ulcer, s/p biopsy, S/P chanda-en-Y gastric bypass surgery with limited endoscopic ultrasound examination. I was able to visualize the pancreatic neck, body, and tail, which were largely unremarkable. The pancreatic head and common bile duct could not be visualized. Portion of fundic mucosa with edema, reactive changes and mild chronic inflammation, portion of intestinal mucosa with marked reactive changes and chronic inflammation, negative for viral inclusions, granulomas, and for malignancy. EGD (04/20/14)---> Gastritis around anastomosis, biopsied , retroflexed views revealed no abnormalities. Pathology revealed chronic gastritis, mild. She has had intermittent chest pain, radiating to sides and back with occasional nausea- 3x, usually about a month apart. She cannot identify any aggravating factors. Lipase 839. Will get CT scan abdomen and pelvis. Check Ca19-9. Pepcid, carafate. - Chronic diarrhea. States she has this 3-4 times a week with multiple frequent liquid/loose stools. Takes Kaopectate or Imodium for this and reports that it does help. This does seem to be aggravated by sweets and ice cream. Her last colonoscopy was Colonoscopy (09/12/12)---> sessile polyp in the mid transverse colon, sessile polyp in the rectum, moderate diverticulosis in the sigmoid colon, small internal hemorrhoids, small external hemorrhoids. - Leukocytosis. WBC 18.5. BCx pending. FLU A/B negative. - HTN, CAD, CHF, Anxiety, Fibromyalgia per attending. PLAN: - Clear liquids - CT Scan abdomen and pelvis with iv/po contrast - Change Pepcid to Protonix - Cont. Carafate - Ca19-9 - Lipase, CBC, CMP in am - Supportive care - Further recommendations to follow based on results of above - Pt seen and examined by Dr. Hernández and myself and this note is written on his behalf Ailin Vicente Jan 10, 2017 09:03
--- NOTE | 2017-01-10 11:27 | EKG ---
Date Performed: 01/09/2017 Time Performed: 21:58:11 PTAGE: 61 years EKG: Sinus rhythm NORMAL ECG Compared to prior tracing no significant change PREVIOUS TRACING : 06/19/2013 10.00 DOCTOR: Gregory Lozano Interpretating Date/Time 01/10/2017 11:25:55
--- NOTE | 2017-01-10 11:50 | HHI.PR ---
Subjective Remarks Follow up for chest pain, abdominal pain, nausea, diarrhea. The patient reports overall feeling much better compared to yesterday. She denies any further chest pains. She does report some nausea this morning however relieved by IV Zofran, no vomiting. She also reports her diarrhea is improving, her last episode was last night, denies noticing any blood. She does admit to finishing a course of Levaquin 2-3weeks ago. The patient is very drowsy, and falls asleep during conversation. She denies any other medical complaints at this time. Objective Vitals Vital Signs Date Time Temp Pulse Resp B/P Pulse Ox O2 Delivery O2 Flow Rate FiO2 01/10/17 11:33 98.0 74 15 109/53 96 01/10/17 10:25 77 01/10/17 09:09 18 01/10/17 07:08 100.1 117 17 137/65 95 01/10/17 05:14 98.9 117 20 139/71 95 01/10/17 02:22 99.3 98 21 143/63 100 01/10/17 00:03 136/64 01/09/17 23:49 18 01/09/17 23:42 95 18 176/75 96 Room Air 01/09/17 22:07 98 01/09/17 22:05 99.4 92 18 192/99 99 01/09/17 21:37 99.4 89 16 186/81 99 Room Air Result Diagram: 01/10/17 0333 01/10/17 0333 Imaging Last Impressions Chest X-Ray 01/09/172202 Signed Impressions: Service Date/Time: Monday, January 09, 2017 22:21 - CONCLUSION: 1. Minimal basal atelectasis. Cliff Larose MD Objective Remarks GENERAL: Well-nourished, well-developed obese female patient in [facility]. SKIN: Warm and dry. No rash. HEENT: Normocephalic. Atraumatic.Pupils equal and round. Mucous membranes pink and moist. NECK: Supple. Trachea midline. CARDIOVASCULAR: Regular rate and rhythm. S1, S2 noted. No murmur appreciated. RESPIRATORY: No accessory muscle use. Clear to auscultation. Breath sounds equal bilaterally. GASTROINTESTINAL: Abdomen soft, non-tender, nondistended. Normoactive bowel sounds x4. MUSCULOSKELETAL: No obvious deformities. Extremities without clubbing, cyanosis , or edema. NEUROLOGICAL: Awake and alert. No obvious cranial nerve deficits. Motor grossly within normal limits. Normal speech. PSYCHIATRIC: Appropriate mood and affect; insight and judgment normal. Medications and IVs Current Medications Medications (Trade) Dose Ordered Sig/Corey Route Start Time Stop Time Status Last Admin (NS Flush) 2 ml UNSCH PRN IV FLUSH 01/09/17 23:30 (NS Flush) 2 ml BID IV FLUSH 01/10/17 09:00 01/10/17 08:42 (Narcan Inj) 0.4 mg UNSCH PRN IV 01/09/17 23:30 (Morphine Inj) 2 mg Q3H PRN IV PUSH 01/09/17 23:30 01/10/17 09:04 (Protonix Inj) 40 mg Q12H IV PUSH 01/10/17 02:00 01/10/17 02:57 (Carafate Liq) 1 gm ACHS PO 01/10/17 07:00 01/10/17 11:37 (Aspirin) 325 mg DAILY PO 01/10/17 09:00 01/10/17 08:41 (Catapres) 0.2 mg TID PO 01/10/17 09:00 01/10/17 08:41 (Lopressor) 50 mg BID PO 01/10/17 09:00 01/10/17 08:41 (Pepcid) 20 mg DAILY PO 01/10/17 09:00 01/10/17 08:41 (Lovenox Inj) 40 mg Q24H SQ 01/10/17 09:00 01/10/17 08:41 A/P Problem List: (1) Chest pain ICD Code: R07.9 Status: Acute (2) Headache ICD Code: R51 Status: Acute (3) Pancreatitis ICD Code: K85.90 Status: Acute (4) Febrile illness ICD Code: R50.9 Status: Acute Assessment and Plan 61-year-old female with history of HTN, DM with episodes of hypoglycemia, PACs, possible afib, CAD, CHF, CBD with pancreatic stent, fatty liver, anxiety, presents with atypical chest pain, nausea, diarrhea. Chest pain with Palpitations: patient has hx of PACs and possible atrial fibrillation. Pt used to follow up with Dr Mimi Milian, and stated she was no longer accepted there because she refused to take higher dose of metoprolol 100mg due to side effects. She had no problem with metoprolol 50mg po bid dose prior. - ACS ruled out with negative serial cardiac enzymes x3 and EKG reviewed with no acute ischemic changes - continue BB with metoprolol 50mg bid - possibly GI related, see below - d- dimer is negative - 2-D echocardiogram shows normal systolic function EF 50-55%, moderate TR - Continuous cardiac telemetry to monitor for arrhythmias - chest pain improved Headache: refused lumbar puncture in ED; however, her complaint is more of musculoskeletal neck pain. Pointed to left neck going all the way up to the head. Stated this is the same area when she have pains from fibromyalgia. Though this pain is worse than her normal pains. - IV morphine prn pain - headache much improved - monitor cultures SIRS: with leukocytosis WBC 15K, tachycardia HR 117 - Negative for influenza - UA unremarkable - Blood cultures pending, await results - check stool cultures - monitor CBC Abdominal Pain with Pancreatitis: Lipase 839. LFTs essential wnl. UA unremarkable. - continue IV protonix - started on Carafate achs - GI consulted - plan for CT abd/pelvis - diet as tolerated per GI Diarrhea: with recent antibiotic use, finished course of Levaquin 2-3weeks ago - Check C. difficile toxin PCR and stool cultures - monitor for improvement All other medical conditions stable, continue home medications as appropriate. DVT prophylaxis- Lovenox 40 mg subq q24h Discharge Planning Discharge pending further clinical improvement and work up. Possible discharge in 1-2 days. Problem Qualifiers (1) Chest pain: Qualified Code: R07.9 - Chest pain, unspecified type (2) Headache: Qualified Code: R51 - Nonintractable headache, unspecified chronicity pattern, unspecified headache type (3) Pancreatitis: Qualified Code: K85.90 - Acute pancreatitis, unspecified complication status, unspecified pancreatitis type Alyssa Recinos PA-C Jan 10, 2017 11:50 am
[2017-01-10] MEDS ORDERED: DIATRIZOATE MEGLUM/DIATRIZOATE SOD 9 ML CUP PO ONE (13:00)
[2017-01-10 13:17] LABS: CREATINE KINASE 34 U/L (26-192)
--- NOTE | 2017-01-10 14:43 | ECHRPT ---
Indication: Shortness of breath CONCLUSIONS Normal left ventricular size. Wall thickness is measured at the upper limits of normal. The left ventricular systolic function is low normal with an estimated ejection fraction in the rang e of 50- 55%. There is moderate tricuspid regurgitation. There is estimated mild pulmonary hypertension present (43 mmHg). BP: 137 / 65 HR: 117 Rhythm: Sinus MEASUREMENTS (Male / Female) Normal Values Technical Quality:Fair 2D ECHO LV Diastolic Diameter PLAX 4.2 cm 4.2 - 5.9 / 3.9 - 5.3 cm LV Systolic Diameter PLAX 3.0 cm IVS Diastolic Thickness 0.9 cm 0.6 - 1.0 / 0.6 - 0.9 cm LVPW Diastolic Thickness 0.7 cm 0.6 - 1.0 / 0.6 - 0.9 cm LV Relative Wall Thickness 0.4 RV Internal Dim ED PLAX 2.2 cm LA Systolic Diameter LX 3.0 cm 3.0 - 4.0 / 2.7 - 3.8 cm DOPPLER Mitral E Point Velocity 52.3 cm/s Mitral A Point Velocity 46.4 cm/s Mitral E to A Ratio 1.1 TR Peak Velocity 307.0 cm/s TR Peak Gradient 37.7 mmHg FINDINGS LEFT VENTRICLE Normal left ventricular size. Wall thickness is measured at the upper limits of normal. The left ventricular systolic function is low normal with an estimated ejection fraction in the rang e of 50- 55%. RIGHT VENTRICLE Normal right ventricular size and systolic function. LEFT ATRIUM The left atrial size is normal. RIGHT ATRIUM The right atrial size is normal. ATRIAL SEPTUM Normal atrial septal thickness without atrial level shunting by limited color doppler interrogation. AORTA The aortic root and proximal ascending aorta are normal in size on limited imaging. MITRAL VALVE Structurally normal mitral valve. No mitral valve stenosis or regurgitation. AORTIC VALVE Trileaflet aortic valve. No aortic valve stenosis or regurgitation. TRICUSPID VALVE There is moderate tricuspid regurgitation. There is estimated mild pulmonary hypertension present (43 mmHg). PULMONARY VALVE The pulmonary valve is not well visualized. VESSELS The inferior vena cava is normal in size. PERICARDIUM No pericardial effusion. Torito Madden MD (Electronically Signed) Final Date:10 January 2017 14:42
--- NOTE | 2017-01-10 15:13 | EKG ---
Date Performed: 01/10/2017 Time Performed: 05:08:46 PTAGE: 61 years EKG: SINUS TACHYCARDIA Since previous tracing, no significant change noted ABNORMAL RHYTHM ECG PREVIOUS TRACING : 01/09/2017 21.58 DOCTOR: Gregory Lozano Interpretating Date/Time 01/10/2017 16:28:45
[2017-01-10] MEDS ORDERED: IOHEXOL 350 MG/ML 10 ML VIAL (for RAD DIAG) IV ONE (16:08)
--- NOTE | 2017-01-10 16:41 | RADRPT ---
EXAM DATE/TIME: 01/10/2017 16:02 [facility] COMPARISON: CT ABDOMEN & PELVIS W CONTRAST, September 15, 2016, 13:56. INDICATIONS : Diffuse bilateral upper abdomen pain. IV CONTRAST: 100 cc Omnipaque 350 (iohexol) IV ORAL CONTRAST: Prescribed oral contrast ingested. RADIATION DOSE: 17.53 CTDIvol (mGy) MEDICAL HISTORY : Hypertension. Pancreatitis. Diabetes mellitus type 2. SURGICAL HISTORY : Tubal ligation. Gastric bypass. Cholecystectomy.Hernia repair, Tummy tuck ENCOUNTER: Initial ACUITY: 3 days PAIN SCALE: 4/10 LOCATION: Bilateral upper quadrant TECHNIQUE: Volumetric scanning of the abdomen and pelvis was performed. Using automated exposure control and ad justment of the mA and/or kV according to patient size, radiation dose was kept as low as reasonably achievable to obtain optimal diagnostic quality images. DICOM format image data is available electro nically for review and comparison. FINDINGS: LOWER LUNGS: The visualized lower lungs are clear. LIVER: Homogeneous density without lesion. There is no dilation of the biliary tree. No gallbladder, surgi selma removed.. SPLEEN: Normal size without lesion. PANCREAS: Within normal limits. KIDNEYS: Normal in size and shape. There is no mass, stone or hydronephrosis. ADRENAL GLANDS: Within normal limits. VASCULAR: There is no aortic aneurysm. BOWEL/MESENTERY: The stomach, small bowel, and colon demonstrate no acute abnormality. There is no free intraperitone al air or fluid. The appendix is unremarkable. No inflammatory changes. Scattered diverticulosis of t he descending and sigmoid colon. ABDOMINAL WALL: Within normal limits. RETROPERITONEUM: There is no lymphadenopathy. BLADDER: No wall thickening or mass. REPRODUCTIVE: Within normal limits. INGUINAL: There is no lymphadenopathy or hernia. MUSCULOSKELETAL: Within normal limits for patient age. CONCLUSION: 1. Scattered diverticulosis of the descending and sigmoid colon. 2. No new or significant changes compared to the prior study. Sheldon Francis MD on January 10, 2017 at 16:37 Board Certified Radiologist. This report was verified electronically.
[2017-01-10 18:37] LABS: C. DIFF EPI 027 PRESUMPTIVE NEGATIVE (NEGATIVE)
[2017-01-10] MEDS ORDERED: PEG (High)/E-LYTE SOLN 4000 ML BTL PO ONE (20:00)
[2017-01-11] VITALS (9 sets, daily range): BP systolic 133–150; BP diastolic 63–70; PULSE 75–100; RESP 18–20; TEMP 97.8–98.5; O2SAT 96
[2017-01-11] MEDS: MORPHINE SULFATE 4 MG/ML INJ IV PUSH PRN (00:26)
[2017-01-11] MEDS: PANTOPRAZOLE SODIUM 40 MG VIAL IV PUSH SCH ×2 (00:26→13:52)
[2017-01-11] MEDS ORDERED: ASPIRIN 325 MG/CAFFEINE 40 MG/BUTALBITAL 50 MG CAP PO ONE (03:15)
[2017-01-11] MEDS ORDERED: ACETAMIN 325 MG/BUTALBITAL 50 MG/CAFFEINE 40 MG TAB PO ONE ×2 (03:30→11:45)
[2017-01-11 06:19] LABS: AUTOMATED NEUTROPHIL # 5.1 TH/MM3 (1.8-7.7); BASOPHIL # 0.1 TH/MM3 (0-0.2); BASOPHIL % 0.8 % (0.0-2.0); EOSINOPHIL # 0.2 TH/MM3 (0-0.4); EOSINOPHIL % 2.2 % (0.0-4.0); HEMO FLAGS DIFF FINAL; LYMPH % 32.4 % (9.0-44.0); MEAN CELL VOLUME 89.4 FL (80.0-100.0); MEAN CORPUSCULAR HGB CONC 32.4 % (32.0-36.0); MONO % 9.8 % (0.0-8.0); NEUT % 54.8 % (16.0-70.0); PLATELET COUNT 262 TH/MM3 (150-450); RED BLOOD COUNT 4.03 MIL/MM3 (4.00-5.30); WHITE BLOOD COUNT 9.2 TH/MM3 (4.0-11.0)
[2017-01-11] MEDS: SUCRALFATE 1 GM/10 ML CUP PO SCH ×2 (06:26→11:00)
[2017-01-11 06:38] LABS: ALT (GPT) 15 U/L (10-53); ANION GAP 7 MEQ/L (5-15); AST (GOT) 15 U/L (15-37); BLOOD UREA NITROGEN 9 MG/DL (7-18); CHLORIDE 102 MEQ/L (98-107); GLOMERULAR FILTRATION RATE 68 ML/MIN (>89); POTASSIUM 3.9 MEQ/L (3.5-5.1); SODIUM (NA) 142 MEQ/L (136-145)
[2017-01-11 06:40] LABS: ALKALINE PHOSPHATASE 92 U/L (45-117); TOTAL BILIRUBIN ADULT 0.3 MG/DL (0.2-1.0)
[2017-01-11] MEDS ORDERED: GLUCAGON 1 MG/ML VIAL OTHER PRN (07:45)
[2017-01-11] MEDS ORDERED: DEXTROSE 50% IN WATER 50 ML VIAL(D50) IV PRN (07:45)
[2017-01-11] MEDS ORDERED: PROPOFOL 200 MG/20 ML AMP IV ONE (10:14)
[2017-01-11] MEDS ORDERED: DO NOT ADM ANY ANTICOAGULANT DRUGS PRN (10:28)
--- NOTE | 2017-01-11 10:32 | HHI.GIFU ---
Subjective Remarks EGD and colonoscopy done. Gastric bypass healthy. Diverticulosis but no polyps. OK to eat. Ok to discharge to home if otherwise stable. Objective Vitals I&O Vital Signs Date Time Temp Pulse Resp B/P Pulse Ox O2 Delivery O2 Flow Rate FiO2 01/11/17 08: 97.8 100 20 133/70 96 01/11/17 04:49 98.5 18 150/68 96 01/11/17 04:36 80 01/11/17 03:20 75 01/11/17 02:41 97.9 01/11/17 00:35 98.2 85 18 133/69 96 01/10/17 20:35 97.8 81 18 121/64 100 01/10/17 20:05 91 01/10/17 18:32 82 01/10/17 15:28 18 01/10/17 15:21 98.4 93 18 134/65 95 01/10/17 13:50 77 01/10/17 11:33 98.0 74 15 109/53 96 I/O 01/10/17 01/10/17 01/10/17 01/11/17 01/11/17 01/11/17 07:00 15:00 23:00 07:00 15:00 23:00 Intake Total 580 ml Output Total 3000 ml Balance 580 ml -3000 ml Intake Oral 580 ml Output Stool Total 3000 ml # Voids 1 5 # Bowel Movements 1 Laboratory Laboratory Tests Test 01/10/17 01/11/17 12:30 06:15 Total Creatine Kinase 34 Troponin I LESS THAN 0.02 CA 19-9 Antigen 15.5 White Blood Count 9.2 Red Blood Count 4.03 Hemoglobin 11.7 Hematocrit 36.0 Mean Corpuscular Volume 89.4 Mean Corpuscular Hemoglobin 29.0 Mean Corpuscular Hemoglobin 32.4 Concent Red Cell Distribution Width 13.0 Platelet Count 262 Mean Platelet Volume 7.7 Neutrophils (%) (Auto) 54.8 Lymphocytes (%) (Auto) 32.4 Monocytes (%) (Auto) 9.8 Eosinophils (%) (Auto) 2.2 Basophils (%) (Auto) 0.8 Neutrophils # (Auto) 5.1 Lymphocytes # (Auto) 3.0 Monocytes # (Auto) 0.9 Eosinophils # (Auto) 0.2 Basophils # (Auto) 0.1 CBC Comment DIFF FINAL Differential Comment Sodium Level 142 Potassium Level 3.9 Chloride Level 102 Carbon Dioxide Level 33.0 Anion Gap 7 Blood Urea Nitrogen 9 Creatinine 0.84 Estimat Glomerular Filtration 68 Rate Random Glucose 217 Calcium Level 8.8 Total Bilirubin 0.3 Aspartate Amino Transf 15 (AST/SGOT) Alanine Aminotransferase 15 (ALT/SGPT) Alkaline Phosphatase 92 Total Protein 7.1 Albumin 2.7 Lipase 82 Date/Time Procedure Status Source Growth 01/10/17 03:00 Received Stool Stool Pending 01/09/17 23:05 Influenza Types A,B Antigen (LEONIDAS) - Final Complete Nasal Washing NEGATIVE FOR FLU A AND B ANTIGEN.... 01/09/17 22:10 Aerobic Blood Culture - Preliminary Resulted Blood Peripheral NO GROWTH IN 1 DAY 01/09/17 22:10 Anaerobic Blood Culture - Preliminary Resulted Blood Peripheral NO GROWTH IN 1 DAY Physical Exam HEENT: Pupils round and reactive to light; normocephalic; atraumatic; no jaundice. Throat is clear. NECK: Neck is supple, no JVD, no lymphadenopathy. CHEST: Chest is clear to auscultation and percussion. CARDIAC: Regular rate and rhythm with no murmur gallop or rubs. ABDOMEN: Soft, nondistended, nontender; no hepatosplenomegaly; bowel sounds are present in all four quadrants. EXTREMITIES: No clubbing, cyanosis, or edema. SKIN: Normal; no rash; no jaundice. HOSPITAL RECRUITER: No focal deficits; alert and oriented times three. Assessment and Plan Plan ASSESSMENT: - Atypical chest pain, nausea, abdominal pain, diarrhea with elevated Lipase. She has a history of biliary obstruction and elevated Ca19-9. She also has a hx of gastric bypass and cannot have ERCP and therefore underwent transhepatic biliary drainage (06/20/13)----> Very difficult case due to the patient's body habitus. The patient also has mesh involving the anterior abdominal wall per her report from previous ventral hernia repair preventing left sided access. An internal/external biliary drainage catheter was placed via right sided approach. The biliary tree is dilated within the intrahepatic and extrahepatic aspects down to the level of the ampulla. She reports that she with had multiple stent exchanges by IR, but after 8 months did not require any more of these. According to office records, Ca19-9 ( 12/17/13) 50.8, EUS (02/22/14)---> Gastrojejunal anastomosis ulcer, s/p biopsy, S/P chanda-en-Y gastric bypass surgery with limited endoscopic ultrasound examination. I was able to visualize the pancreatic neck, body, and tail, which were largely unremarkable. The pancreatic head and common bile duct could not be visualized. Portion of fundic mucosa with edema, reactive changes and mild chronic inflammation, portion of intestinal mucosa with marked reactive changes and chronic inflammation, negative for viral inclusions, granulomas, and for malignancy. EGD (04/20/14)---> Gastritis around anastomosis, biopsied , retroflexed views revealed no abnormalities. Pathology revealed chronic gastritis, mild. She has had intermittent chest pain, radiating to sides and back with occasional nausea- 3x, usually about a month apart. She cannot identify any aggravating factors. Lipase 839. Will get CT scan abdomen and pelvis. Check Ca19-9. Pepcid, carafate. - Chronic diarrhea. States she has this 3-4 times a week with multiple frequent liquid/loose stools. Takes Kaopectate or Imodium for this and reports that it does help. This does seem to be aggravated by sweets and ice cream. Her last colonoscopy was Colonoscopy (09/12/12)---> sessile polyp in the mid transverse colon, sessile polyp in the rectum, moderate diverticulosis in the sigmoid colon, small internal hemorrhoids, small external hemorrhoids. - Leukocytosis. WBC 18.5. BCx pending. FLU A/B negative. - HTN, CAD, CHF, Anxiety, Fibromyalgia per attending. PLAN: regular diet - CT Scan abdomen and pelvis with iv/po contrast - Change Pepcid to Protonix - Cont. Carafate - Ca19-9 - Lipase, CBC, CMP in am - Supportive care Rommel Hernández MD Jan 11, 2017 10:32
[2017-01-11] MEDS ORDERED: INSULIN ASPART SUPPLEMENTAL SCALE SQ SCH (11:00)
[2017-01-11] MEDS: cloNIDine HCL 0.2 MG TAB PO SCH ×2 (11:12→13:00)
[2017-01-11] MEDS: FAMOTIDINE 20 MG TAB PO SCH (11:12)
[2017-01-11] MEDS: METOPROLOL TARTRATE 25 MG TAB PO SCH (11:12)
[2017-01-11] MEDS: SODIUM CHLORIDE 0.9% FLUSH 10 ML FLUSH IV FLUSH SCH (11:15)
[2017-01-11] MEDS: ASPIRIN 325 MG TAB PO SCH (11:15)
--- NOTE | 2017-01-11 11:43 | HHI.PR ---
Subjective Remarks Follow-up for abdominal pain. The patient is seen s/p EGD and EUS. Cleared by GI for discharge. Patient reports that abdominal pain has improved since admission. She is looking forward to eating. She does have a headache at this time. Normally she has migraines when her BP is above 140 and whenever better BP control doesn't work, she takes Excedrin and Fioricet for which usually helps. She has not had her morning medications including BP meds yet. She does have a history of diabetes. She doesn't tolerate metformin. She states that she has glyburide, but only takes it as needed, because it always decreases her sugars. She had hypoglycemia on preprandial insulin before. She would like to follow up with her PCP regarding newer diabetes medications. Patient denies any further fevers. Objective Vitals Vital Signs Date Time Temp Pulse Resp B/P Pulse Ox O2 Delivery O2 Flow Rate FiO2 01/11/17 10:45 81 16 159/74 96 Room Air 01/11/17 10:35 79 16 96 Room Air 01/11/17 10:26 97.8 84 16 152/75 97 Nasal Cannula 2 01/11/17 08: 97.8 100 20 133/70 96 01/11/17 04:49 98.5 18 150/68 96 01/11/17 04:36 80 01/11/17 03:20 75 01/11/17 02:41 97.9 01/11/17 00:35 98.2 85 18 133/69 96 01/10/17 20:35 97.8 81 18 121/64 100 01/10/17 20:05 91 01/10/17 18:32 82 01/10/17 15:28 18 01/10/17 15:21 98.4 93 18 134/65 95 01/10/17 13:50 77 I/O 01/10/17 01/10/17 01/10/17 01/11/17 01/11/17 01/11/17 06:59 14:59 22:59 06:59 14:59 22:59 Intake Total 580 ml 500 ml Output Total 3000 ml Balance 580 ml -3000 ml 500 ml Intake Oral 580 ml Other 500 ml Output Stool Total 3000 ml # Voids 1 5 # Bowel Movements 1 Result Diagram: 01/11/1715 01/11/1715 Imaging Last Impressions Abdomen/Pelvis CT 01/10/17 1053 Signed Impressions: Service Date/Time: January 16:02 - CONCLUSION: 1. Scattered diverticulosis of the descending and sigmoid colon. 2. No new or significant changes compared to the prior study. Sheldon Francis MD Chest X-Ray 01/09/17 2203 Signed Impressions: Service Date/Time: Monday, January 09, 2017 22:21 - CONCLUSION: 1. Minimal basal atelectasis. Cliff Larose MD Objective Remarks GENERAL: Well-developed well-nourished. In no acute distress. SKIN: Warm and dry. No lesions noted. HEENT: Normocephalic. Pupils equal and round. Mucous membranes pink and moist. CARDIOVASCULAR: Regular rate and rhythm. No murmur appreciated. RESPIRATORY: No accessory muscle use. Clear to auscultation. Breath sounds equal bilaterally. GASTROINTESTINAL: Abdomen soft, nondistended. Mild epigastric TTP. Bowel sounds x4. MUSCULOSKELETAL: No obvious deformities. No clubbing or cyanosis. No edema. NEUROLOGICAL: Awake and alert. No focal neurological deficits. Moves upper and lower extremities spontaneously. Normal speech. PSYCHIATRIC: Appropriate mood and affect; insight and judgment normal. A/P Problem List: (1) Chest pain ICD Code: R07.9 Status: Resolved (2) Headache ICD Code: R51 Status: Acute (3) Pancreatitis ICD Code: K85.90 Status: Resolved (4) Febrile illness ICD Code: R50.9 Status: Acute Assessment and Plan 61-year-old female with history of HTN, DM with episodes of hypoglycemia, PACs, possible afib, CAD, CHF, CBD with pancreatic stent, fatty liver, anxiety, presents with atypical chest pain, nausea, diarrhea. Chest pain with Palpitations: patient has hx of PACs and possible atrial fibrillation. - ACS ruled out with negative serial cardiac enzymes x3 and EKG reviewed with no acute ischemic changes - continue BB with metoprolol 50mg bid - possibly GI related, see below - d- dimer is negative - 2-D echocardiogram shows normal systolic function EF 50-55%, moderate TR - Continuous cardiac telemetry to monitor for arrhythmias - chest pain improved Headache: History of migraines. Also reports headache when blood pressure is not controlled, currently 159/74 since morning medications were missed due to being in GI lab. - Control BP - Continue home Fioricet as needed SIRS: with leukocytosis WBC 15K, tachycardia HR 117 - Negative for influenza - UA unremarkable - Blood cultures with NGTD - C. difficile negative, stool cultures negative to date - Antibiotics held with no obvious source - Leukocytosis has resolved on repeat CBC Abdominal Pain with Pancreatitis: Lipase 839, decreased to normal limits. LFTs wnl. UA unremarkable. CT abdomen with no acute process. CA-19-9 within normal limits. - continue PPI - started on Carafate achs - GI consulted, performed EGD and EUS, which were essentially unremarkable, noted chronic inflammatory changes in the gastric fundus - diet as tolerated per GI and cleared if patient is stable Diarrhea: with recent antibiotic use, C. difficile negative - Further stool cultures pending - 1 PM overnight - Clear by GI for DC Diabetes mellitus: Chronic. Patient reports noncompliance with glyburide secondary to hypoglycemia. Blood glucoses around 200. - Recommend patient monitor Accu-Cheks and continue glyburide as needed for hyperglycemia, and needs close follow up with PCP to consider alternate regimen All other medical conditions stable, continue home medications as appropriate. Discharge Planning Likely discharge planning later today if patient tolerates oral intake and remains stable. Problem Qualifiers (1) Chest pain: Qualified Code: R07.9 - Chest pain, unspecified type (2) Headache: Qualified Code: R51 - Nonintractable headache, unspecified chronicity pattern, unspecified headache type (3) Pancreatitis: Qualified Code: K85.90 - Acute pancreatitis, unspecified complication status, unspecified pancreatitis type Gregory Dexter Jan 11, 2017 11:43
[2017-01-11] MEDS ORDERED: PROT40TA PO (11:48)
[2017-01-11] MEDS ORDERED: SUCR1S PO (11:48)
--- NOTE | 2017-01-11 16:42 | EKG ---
Date Performed: 01/10/2017 Time Performed: 11:16:56 PTAGE: 61 years EKG: Sinus rhythm Nonspecific T wave change. When compared to previous tracing, the T wave changes are New. NORMAL ECG PREVIOUS TRACING : 01/10/2017 05.08 DOCTOR: Mayur Zarate Interpretating Date/Time 01/11/2017 16:42:22
[2017-01-11 17:25] LABS: HEMOGLOBIN A1a 1.2 %; HEMOGLOBIN A1b 2.7 %; HEMOGLOBIN Ao 77.5 %; HEMOGLOBIN P3 7.4 %
== END 2017-01-11 16:05 | disposition home or self-care (01) ==
LOC: NEPE 21:33 → NEDA 23:30 → NEPHCDU 01-10 01:50
PROVIDERS: ADMIT Internal Medicine; ATTEND Internal Medicine
DX: K85.90 Acute pancreatitis without necrosis or infection, unspecified (principal); R07.89 Other chest pain; F41.9 Anxiety disorder, unspecified; I11.0 Hypertensive heart disease with heart failure; I50.9 Heart failure, unspecified; I25.10 Atherosclerotic heart disease of native coronary artery without angina pectoris; G47.33 Obstructive sleep apnea (adult) (pediatric); F32.9 Major depressive disorder, single episode, unspecified; E78.00 Pure hypercholesterolemia, unspecified; M79.7 Fibromyalgia; K76.0 Fatty (change of) liver, not elsewhere classified; K21.9 Gastro-esophageal reflux disease without esophagitis; E11.649 Type 2 diabetes mellitus with hypoglycemia without coma; K57.30 Diverticulosis of large intestine without perforation or abscess without bleeding; R51 Headache; Z79.84 Long term (current) use of oral hypoglycemic drugs; Z87.11 Personal history of peptic ulcer disease; Z91.19 Patient's noncompliance with other medical treatment and regimen; Z98.84 Bariatric surgery status; Z79.899 Other long term (current) drug therapy
CPT/HCPCS: 00740; 00810; 43235; 45378; 71010; 74177; 80048; 80053; 81001; 82550; 82948; 83036; 83690; 83880; 84484; 85025; 85379; 85610; 85730; 86301; 87040; 87493; 87506; 87804; 93005; 93306; 96372; 96374; 96375; 96376; 99285; C9113; G0378; J1650; J1815; J2060; J2270; J2765; Q9963; Q9967